=== PATIENT | female | born 1975 | race Caucasian/White ===

== ENCOUNTER 2017-02-13 19:54 | Emergency (ER) | payer MEDICARE, MEDICAID ==
[~2017-02-13] VITALS: Ht 156.2 cm; Wt 64.8 kg
[2017-02-13 20:22] LABS: HEMATOCRIT 47.4 % (34.6-47.8); HEMOGLOBIN 15.6 g/dL (11.7-16.4)
[2017-02-13] MEDS ORDERED: SODIUM CHLORIDE FLUSH 10ML SYR IVF ONE (20:30)
[2017-02-13] MEDS ORDERED: SODIUM CHLORIDE 0.9% 1,000ML IVBOLUS ONE (20:30)
[2017-02-13 20:35] LABS: ASPARTATE AMINO TRANSFERASE 68 U/L (15-37); BLOOD UREA NITROGEN 6 mg/dL (7-18)
[2017-02-13 22:27] LABS: DAU SCREEN DISCLAIMER
[2017-02-13 22:56] VITALS: BP 108/72
[2017-02-13] MEDS ORDERED: METH5TAB2 PO (22:59)
== END 2017-02-13 22:57 | disposition home or self-care (01) ==
LOC: ED 22:51
DX: T40.1X1A Poisoning by heroin, accidental (unintentional), initial encounter (principal); Y92.9 Unspecified place or not applicable; R56.9 Unspecified convulsions; Z90.49 Acquired absence of other specified parts of digestive tract
CPT/HCPCS: 36415; 80053; 80307; 84703; 85025; 96360; 99284; J7030

== ENCOUNTER 2019-08-31 02:48 | Emergency (ER) | payer MEDICARE, MEDICAID ==
[~2019-08-31 02:48] MED LIST: METH5TAB2 PO
[2019-08-31] MEDS ORDERED: CLINDAMYCIN PMX 600MG/50ML 50 ML ONE (03:44)
[2019-08-31] MEDS ORDERED: LIDOCAINE 1%-EPI 1:100K, 20ML ONE (03:44)
[2019-08-31] MEDS ORDERED: KETAMINE 10 MG/ML, 20ML ONE (03:44)
--- NOTE | 2019-08-31 04:47 | NUR ---
pt arrived during downtime. see paper chart regarding sedation and medications given. documentation will continue electronically from now until discharge.
--- NOTE | 2019-08-31 05:01 | NUR ---
pt resting on guney with eyes closed. respirations even and unlabored. pt wakes up to name. pt back to baseline when she came in.
--- NOTE | 2019-08-31 06:46 | NUR ---
pt urinated on her herself. pt cleaned and new gown applied. pt opens her eyes and responds to sternal rub but does not answer questions.
--- NOTE | 2019-08-31 07:11 | NUR ---
RECEIVED REPORT FROM ELISA VAZ. PT LAYING IN BED, RESPIRATIONS EVEN AND UNLABORED, NO SIGNS OF DISTRESS.
--- NOTE | 2019-08-31 08:00 | NUR ---
PT AWAKE TO URINATE, BED MIXON PROVIDED.
[2019-08-31 08:19] LABS: ANION GAP 7 mmol/L (5-15); CALCIUM 8.6 mg/dL (8.5-10.1); CHLORIDE 101 mmol/L (98-107); CREATININE 0.58 mg/dL (0.55-1.02)
--- NOTE | 2019-08-31 08:22 | NUR ---
pt sister: Leonela [phone] she will p/u pt when d/c'ed
--- NOTE | 2019-08-31 09:01 | NUR ---
PT RESPONDS ONLY TO PAINFUL STIMULI, PUPILS 2CM. RESPIRATIONS EVEN AND UNLABORED, NO SIGNS OF DISTRESS.
--- NOTE | 2019-08-31 09:56 | NUR ---
report from pino wilkinson. pt resting comfortably in bed. pt arousable to voice at this time. will continue to monitor.
[2019-08-31 10:03] LABS: BASOPHILS # (AUTO) 0.01 x10^3/uL (0-0.1); BASOPHILS % (AUTO) 0 % (0-1); EOSINOPHILS # (AUTO) 0.19 x10^3/uL (0-0.4); EOSINOPHILS % (AUTO) 1 % (1-7); LYMPHOCYTES # (AUTO) 1.08 x10^3/uL (1-3.4); LYMPHOCYTES % (AUTO) 7 % (22-44); MEAN CORPUSCULAR HEMOGLOBIN 29.4 pg (27.0-34.8); MEAN CORPUSCULAR HGB CONC 33.5 g/dL (32.4-35.8); MEAN CORPUSCULAR VOLUME 87.9 fL (80-100); MEAN PLATELET VOLUME 8.4 fL (7.4-10.4); MONOCYTES # (AUTO) 0.86 x10^3/uL (0.2-0.8); MONOCYTES % (AUTO) 5 % (2-9); NEUTROPHILS # (AUTO) 13.61 x10^3/uL (1.8-6.8); NEUTROPHILS % (AUTO) 87 % (42-75); PLATELET COUNT 261 x10^3/uL (130-400); RED BLOOD COUNT 4.09 x10^6/uL (3.82-5.3); RED CELL DISTRIBUTION WIDTH 12.8 % (9.6-15.2)
[2019-08-31 10:33] LABS: MD SCAN
[2019-08-31] MEDS ORDERED: IBUPROFEN 600 MG TABLET ONE (12:38)
--- NOTE | 2019-08-31 12:54 | NUR ---
attempted to contact sister at provided number with no answer
[2019-08-31] MEDS ORDERED: IBUPROFEN 600 MG TABLET PO ONE (13:00)
--- NOTE | 2019-08-31 13:07 | NUR ---
pt dressed with donation clothes. pt ambulated to restroom with a steady gait.
--- NOTE | 2019-08-31 13:09 | NUR ---
attempt x2 to contact sister. no responce. Addendum: 08/31/19 at 1310 by ALLISON response.
[2019-08-31 13:35] VITALS: BP 111/70
--- NOTE | 2019-08-31 13:46 | NUR ---
Task RN: Call placed to pt's sister Leonela castillo/ the number provided in previous notes. no answer. message left. attemptx3.
--- NOTE | 2019-08-31 14:41 | NUR ---
ATTEMPT 4 TO CALL SISTER UNSUCCESSFUL.
== END 2019-08-31 15:03 | disposition home or self-care (01) ==
LOC: ED 04:14
DX: L02.415 Cutaneous abscess of right lower limb (principal); L03.115 Cellulitis of right lower limb; F15.10 Other stimulant abuse, uncomplicated; F11.10 Opioid abuse, uncomplicated; Z72.9 Problem related to lifestyle, unspecified
CPT/HCPCS: 10060; 36415; 80048; 83605; 84145; 84703; 85025; 87040; 87070; 87077; 87147; 87186; 87205; 99285